=== PATIENT | female | born 1995 | race Caucasian/White ===

== ENCOUNTER 2017-02-09 01:36 | Emergency (ER) | payer MEDICAID ==
[2017-02-09 03:42] VITALS: BP 132/91
== END 2017-02-09 03:42 | disposition home or self-care (01) ==
LOC: ED 01:36
DX: K21.9 Gastro-esophageal reflux disease without esophagitis (principal)

== ENCOUNTER 2017-04-18 18:08 | Emergency (ER) | payer OTHER ==
[~2017-04-18] VITALS: Ht 165.1 cm; Wt 121.6 kg
[2017-04-18 18:23] VITALS: Ht 165.1 cm; Wt 121.6 kg
[2017-04-18 21:00] VITALS: BP 132/74
== END 2017-04-18 21:00 | disposition home or self-care (01) ==
LOC: ED 18:08
DX: J06.9 Acute upper respiratory infection, unspecified (principal); H66.91 Otitis media, unspecified, right ear; J02.9 Acute pharyngitis, unspecified

== ENCOUNTER 2017-09-07 23:40 | Emergency (ER) | payer OTHER ==
[~2017-09-07] VITALS: Ht 165.1 cm; Wt 124.7 kg
[2017-09-08 00:08] VITALS: Ht 165.1 cm; Wt 124.7 kg
[2017-09-08 00:40] VITALS: BP 144/72
== END 2017-09-08 00:40 | disposition home or self-care (01) ==
LOC: ED 23:40
DX: S80.869A Insect bite (nonvenomous), unspecified lower leg, initial encounter (principal); W57.XXXA Bitten or stung by nonvenomous insect and other nonvenomous arthropods, initial encounter; Y93.89 Activity, other specified; Y92.89 Other specified places as the place of occurrence of the external cause; Y99.8 Other external cause status

== ENCOUNTER 2018-05-17 18:20 | Emergency (ER) | payer OTHER, MEDICAID ==
[~2018-05-17] VITALS: Ht 165.1 cm; Wt 119.3 kg
[2018-05-17 18:22] VITALS: Ht 165.1 cm; Wt 119.3 kg
[2018-05-17 18:51] LABS: BASOPHIL % 0.6 % (0-2); PLATELET COUNT 249 x10^3mcL (130-400); RED CELL DISTRIBUTION WIDTH 14.4 % (11.5-14.5)
[2018-05-17 19:04] LABS: ALKALINE PHOSPHATASE 82 U/L (46-116); ALT/SGPT 12 U/L (14-59); AST/SGOT 15 U/L (15-37); BILIRUBIN TOTAL 0.1 mg/dL (0.20-1.00); CALCIUM 8.8 mg/dL (8.5-10.1); CARBON DIOXIDE 25.7 mmol/L (21-32); CREATININE SERUM 0.7 mg/dL (0.6-1.0); GFR1 > 60 mL/min; GLUCOSE SERUM 102 mg/dL (74-106); TOTAL PROTEIN, SERUM 7.4 g/dL (6.4-8.2)
[2018-05-17 19:41] LABS: CHLORIDE SERUM 100 mmol/L (98-107); POTASSIUM SERUM 3.7 mmol/L (3.5-5.1); SODIUM SERUM 135 mmol/L (136-145)
[2018-05-17 21:35] VITALS: BP 124/77
== END 2018-05-17 21:35 | disposition home or self-care (01) ==
LOC: ED 18:20
PROVIDERS: Emergency Medicine
DX: O26.891 Other specified pregnancy related conditions, first trimester (principal); R10.32 Left lower quadrant pain; R10.30 Lower abdominal pain, unspecified; Z3A.10 10 weeks gestation of pregnancy; Z98.890 Other specified postprocedural states
CPT/HCPCS: 36415; J7030; Q0092

== ENCOUNTER 2018-12-03 19:01 | Emergency (ER) | payer OTHER, MEDICAID ==
[~2018-12-03] VITALS: Ht 165.1 cm; Wt 125.2 kg
[2018-12-03 19:17] VITALS: Ht 165.1 cm; Wt 125.2 kg
[2018-12-03 19:54] LABS: BASOPHIL % 0.4 % (0-2); PLATELET COUNT 308 x10^3mcL (130-400)
[2018-12-03 19:55] LABS: RED CELL DISTRIBUTION WIDTH 17.2 % (11.5-14.5)
[2018-12-03 20:03] LABS: UA SPECIFIC GRAVITY 1.015 (1.005-1.035); microscopic required? YES; urine erythrocyte TRACE (NEGATIVE)
[2018-12-03 20:05] LABS: CARBON DIOXIDE 24.3 mmol/L (21-32); CHLORIDE SERUM 106 mmol/L (98-107); CREATININE SERUM 0.8 mg/dL (0.6-1.0); GFR1 > 60 mL/min; GLUCOSE SERUM 103 mg/dL (74-106); POTASSIUM SERUM 3.3 mmol/L (3.5-5.1); SODIUM SERUM 141 mmol/L (136-145)
[2018-12-03 20:09] LABS: ALKALINE PHOSPHATASE 151 U/L (46-116); ALT/SGPT 17 U/L (14-59); AST/SGOT 18 U/L (15-37); BILIRUBIN TOTAL 0.43 mg/dL (0.20-1.00); TOTAL PROTEIN, SERUM 6.9 g/dL (6.4-8.2)
[2018-12-03 20:10] LABS: ALBUMIN 2.6 g/dL (3.4-5.0)
[2018-12-03 20:20] LABS: FREE T4 1.08 ng/dL (0.76-1.46); FREE THYROXINE INDEX 2.8 ug/dL (1.4-4.5); T4(THYROXINE) 9.3 ug/dL (4.7-13.3)
[2018-12-03 20:42] LABS: T3 TOTAL 1.08 ng/mL
[2018-12-03 23:18] VITALS: BP 127/75
== END 2018-12-03 23:19 | disposition home or self-care (01) ==
LOC: ED 19:01
PROVIDERS: Specialist
DX: N39.0 Urinary tract infection, site not specified (principal); Z98.890 Other specified postprocedural states
CPT/HCPCS: 84439; J0696; J1885; J7030; J7060; Q0092

== ENCOUNTER 2020-01-26 21:44 | Emergency (ER) | payer OTHER ==
[~2020-01-26] VITALS: Ht 165.1 cm; Wt 133.8 kg
[2020-01-26 22:56] LABS: CALCIUM 9.1 mg/dL (8.5-10.1); CARBON DIOXIDE 26.6 mmol/L (21-32); CHLORIDE SERUM 104 mmol/L (98-107); CREATININE SERUM 0.8 mg/dL (0.6-1.0); GFR1 > 60 mL/min; GLUCOSE SERUM 107 mg/dL (74-106); POTASSIUM SERUM 3.6 mmol/L (3.5-5.1); SODIUM SERUM 138 mmol/L (136-145)
[2020-01-26 23:05] LABS: BASOPHIL % 1.1 % (0-2); PLATELET COUNT 248 x10^3mcL (130-400); RED CELL DISTRIBUTION WIDTH 14.5 % (11.5-14.5)
[2020-01-26 23:09] LABS: ALKALINE PHOSPHATASE 92 U/L (46-116); ALT/SGPT 17 U/L (14-59); AST/SGOT 17 U/L (15-37); BILIRUBIN TOTAL 0.21 mg/dL (0.20-1.00); TOTAL PROTEIN, SERUM 7.7 g/dL (6.4-8.2)
[2020-01-26 23:10] LABS: ALBUMIN 3.3 g/dL (3.4-5.0)
[2020-01-26 23:59] VITALS: BP 145/98
== END 2020-01-26 23:59 | disposition home or self-care (01) ==
LOC: ED 21:44
PROVIDERS: Emergency Medicine
DX: M54.6 Pain in thoracic spine (principal); R07.89 Other chest pain; Z98.890 Other specified postprocedural states
CPT/HCPCS: 85378; J1885